=== PATIENT | male | born 1960 | race American Indian/Alaskan Native ===

== ENCOUNTER 2017-01-27 01:36 | Emergency (ER) | payer SELFPAY ==
[2017-01-27 01:41] VITALS: BMI 25.7
[2017-01-27 01:42] VITALS: TEMP 99.3
--- NOTE | 2017-01-27 01:46 | ED PDOC ---
Arrival/HPI - General Time Seen by Provider: 01/27/17 01:37 Historian: Patient - History of Present Illness Narrative History of Present Illness (Text): 01/27/17 01:45 Tomasz Darling is a 56 year old male smoker, whose past medical history includes pneumonia and hypertension, who presents to the Emergency department complaining of shortness of breath since yesterday. Patient denies any fever, chills, nausea, vomiting, diarrhea, urinary symptoms, back pain, neck pain, headache, dizziness, or any other complaints. Time/Duration: Other (yesterday) Symptom Onset: Gradual Symptom Course: Unchanged Activities at Onset: Rest, Light Context: Home Past Medical History - Provider Review Nursing Documentation Reviewed: Yes Family/Social History - Physician Review Nursing Documentation Reviewed: Yes Family/Social History: Unknown Family HX Allergies/Home Meds Allergies/Adverse Reactions: Allergies No Known Allergies Allergy (Verified 01/27/17 01:40) Home Medications: Home Meds Medication Instructions Recorded Confirmed Aspirin [Aspirin Chewable] 81 mg PO DAILY 01/27/17 01/27/17 Benazepril HCl [Lotensin] 40 mg PO DAILY 01/27/17 01/27/17 Famotidine [Pepcid] 20 mg PO DAILY 01/27/17 01/27/17 Hydrochlorothiazide [Microzide] 12.5 mg PO DAILY 01/27/17 01/27/17 Omeprazole [Omeprazole] 40 mg PO DAILY 01/27/17 01/27/17 Tadalafil [Cialis] 5 mg PO DAILY 01/27/17 01/27/17 amLODIPine [Norvasc] 10 mg PO DAILY 01/27/17 01/27/17 Review of Systems - Physician Review All systems were reviewed & negative as marked: Yes - Review of Systems Constitutional: Normal. absent: Fevers Eyes: Normal ENT: Normal Respiratory: SOB Gastrointestinal: Normal. absent: Abdominal Pain, Diarrhea, Nausea, Vomiting Genitourinary Male: Normal. absent: Dysuria, Frequency, Hematuria, Urinary Output Changes Musculoskeletal: Normal. absent: Back Pain, Neck Pain Skin: Normal. absent: Rash Neurological: Normal. absent: Headache, Dizziness Endocrine: Normal Hemo/Lymphatic: Normal Psychiatric: Normal Physical Exam Vital Signs Reviewed: Yes Vital Signs Temp Pulse Resp BP Pulse Ox 01/27/17 05:00 80 16 132/81 97 01/27/17 04:04 87 16 147/83 94 L 01/27/17 02:41 88 20 100 01/27/17 02:17 18 01/27/17 01:42 99.3 F 79 15 149/86 100 Temperature: Afebrile Blood Pressure: Normal Pulse: Regular Respiratory Rate: Normal Appearance: Positive for: Well-Appearing, Non-Toxic, Comfortable Pain Distress: None Mental Status: Positive for: Alert and Oriented X 3 - Systems Exam Head: Present: Atraumatic, Normocephalic Pupils: Present: PERRL Extroacular Muscles: Present: EOMI Conjunctiva: Present: Normal Mouth: Present: Moist Mucous Membranes Neck: Present: Normal Range of Motion Respiratory/Chest: Present: Decreased Breath Sounds. No: Respiratory Distress, Accessory Muscle Use Cardiovascular: Present: Regular Rate and Rhythm, Normal S1, S2. No: Murmurs Abdomen: Present: Normal Bowel Sounds. No: Tenderness, Distention, Peritoneal Signs Back: Present: Normal Inspection Upper Extremity: Present: Normal Inspection. No: Cyanosis, Edema Lower Extremity: Present: Normal Inspection. No: Edema Neurological: Present: GCS=15, CN II-XII Intact, Speech Normal Skin: Present: Warm, Dry, Normal Color. No: Rashes Psychiatric: Present: Alert, Oriented x 3, Normal Insight, Normal Concentration Medical Decision Making ED Course and Treatment: 01/27/17 01:46 Impression: 56 year old male complaining of shortness of breath since yesterday. Differential Diagnosis include but are not limited to: reactive airway disease Plan: -- EKG -- Chest X-ray -- Labs, cardiac enzymes, BNP, blood cultures -- Duoneb -- Reassess and disposition Progress Notes: Reviewed EKG, NSR at [address]-segment elevations or depressions, no T-wave inversions, normal intervals. 01/27/17 02:20 Reviewed radiology, Chest X-ray shows no acute processes. 01/27/17 05:35 On re-evaluation, the patient feels better and is in no acute distress. I have discussed the results and plan with the patient, who expresses understanding. Patient in agreement with plan to discharged home. Patient is stable for discharge. Patient was instructed to follow up with physician/clinic in 1-2 days or return if symptoms worsen or new concerning symptoms arise. - Lab Interpretations Microbiology Results: Microbiology Results 01/27/17 02:45 Blood-Venous Blood Culture - Preliminary NO GROWTH AFTER 24 HOURS 01/27/17 02:15 Blood-Venous Blood Culture - Preliminary NO GROWTH AFTER 24 HOURS Lab Results: 01/27/17 01:44 01/27/17 01:44 Lab Results 01/27/17 01:44: Sodium 141, Potassium 3.7, Chloride 106, Carbon Dioxide 21, Anion Gap 18, BUN 14, Creatinine 0.8, Est GFR ( Amer) > 60, Est GFR (Non- Af Amer) > 60, Random Glucose 103, Calcium 9.5, Total Bilirubin 0.2, AST 23, ALT 28, Alkaline Phosphatase 75, Lactate Dehydrogenase 432, Total Creatine Kinase 149, Troponin I < 0.01, NT-Pro-B Natriuret Pep 165, Total Protein 7.8, Albumin 4.5, Globulin 3.4, Albumin/Globulin Ratio 1.3 01/27/17 01:44: WBC 11.2 H, RBC 4.31, Hgb 13.0 L, Hct 37.9 L, MCV 87.9, MCH 30.2 , MCHC 34.3, RDW 14.4, Plt Count 212, MPV 9.4, Gran % 71.5 H, Lymph % (Auto) 13.9 L, Frontier % (Auto) 12.1 H, Eos % (Auto) 2.4, Baso % (Auto) 0.1, Gran # 8.02 H , Lymph # 1.6, Frontier # 1.4 H, Eos # 0.3, Baso # 0.01 I have reviewed the lab results: Yes - RAD Interpretation Radiology Orders: 01/27/17 01:44 CHEST PORTABLE [RAD] Stat Program Schedule Clerk: ED Physician - EKG Interpretation Interpreted by ED Physician: Yes Type: 12 lead EKG - Medication Orders Current Medication Orders: Discontinued Medications Albuterol/Ipratropium (Duoneb 3 Mg/0.5 Mg (3 Ml) Ud) 3 ml IH Q15M SARAH Stop: 01/27/17 02:31 Last Admin: 01/27/17 02:40 Dose: 3 ml - Scribe Statement The provider has reviewed the documentation as recorded by the Jennibefren Robertson All medical record entries made by the Scribe were at my direction and personally dictated by me. I have reviewed the chart and agree that the record accurately reflects my personal performance of the history, physical exam, medical decision making, and the department course for this patient. I have also personally directed, reviewed, and agree with the discharge instructions and disposition. Disposition/Present on Arrival - Present on Arrival Any Indicators Present on Arrival: No - Disposition Have Diagnosis and Disposition been Completed?: Yes Diagnosis: Reactive airway disease Disposition: HOME/ ROUTINE Disposition Time: 05:35 Condition: GOOD Discharge Instructions (ExitCare): Reactive Airways Disease (ED) Prescriptions: Albuterol HFA [Ventolin HFA] 1 puff IH QID #1 puff
[2017-01-27] MEDS: Albuterol-Ipratrop 3 mg / 0.5 (3 ml) UD IH SCH ×3 (01:59→02:40)
[2017-01-27 02:19] LABS: ALB/GLOB RATIO 1.3 (1.1-1.8); ALBUMIN 4.5 g/dL (3.0-4.8); ALT/SGPT 28 U/L (7-56); AST/SGOT 23 U/L (15-59); BLOOD UREA NITROGEN 14 mg/dL (7-21); CALCIUM 9.5 mg/dL (8.4-10.5); GFR AFRICAN-AMERICAN > 60; GFR NON-AFRICAN AMERICAN > 60
[2017-01-27 02:20] LABS: BASO # 0.01 K/mm3 (0.0-2.0); BASO % 0.1 % (0.0-3.0); EOS # 0.3 (0.0-0.7); EOS % 2.4 % (1.5-5.0); GRAN # 8.02 (1.4-6.5); GRAN % 71.5 % (50.0-68.0); LYMPH # 1.6 (1.2-3.4); LYMPH % 13.9 % (22.0-35.0); MEAN CELL VOLUME 87.9 fL (80.0-105.0); MEAN CORPUSCULAR HEMOGLOBIN 30.2 pg (25.0-35.0); MEAN CORPUSCULAR HGB CONC 34.3 g/dl (31.0-37.0); MEAN PLATELET VOLUME 9.4 fl (7.0-11.0); MONO # 1.4 (0.1-0.6); MONO % 12.1 % (1.0-6.0); PLATELET COUNT 212 10^3/uL (120.0-450.0); RBC 4.31 10^6/uL (3.5-6.1); RED CELL DISTRIBUTION WIDTH 14.4 % (11.5-14.5); WHITE BLOOD COUNT 11.2 10^3/ul (4.5-11.0)
[2017-01-27 02:31] LABS: B-TYPE NATRIURETIC PEPTIDE 165 pg/mL (0-450)
[2017-01-27 02:32] LABS: TROPONIN I < 0.01 ng/mL
[2017-01-27 04:04] VITALS: RESP 16
[2017-01-27 05:25] VITALS: BP 132/81; PULSE 80; O2SAT 97
--- NOTE | 2017-01-27 08:41 | RAD ---
HISTORY: sob COMPARISON: 10/01/2015 FINDINGS: LUNGS: No active pulmonary disease. PLEURA: No significant pleural effusion identified, no pneumothorax apparent. CARDIOVASCULAR: Normal. OSSEOUS STRUCTURES: No significant abnormalities. VISUALIZED UPPER ABDOMEN: Normal. OTHER FINDINGS: None. IMPRESSION: No active disease.
--- NOTE | 2017-01-27 08:46 | CARD ---
APPROVED REPORT EKG Measurement Heart [id number] <Conclusion> Normal sinus rhythm Normal ECG
== END 2017-01-27 05:41 | disposition home or self-care (01) ==
LOC: ED 01:36
DX: J45.909 Unspecified asthma, uncomplicated (principal)

== ENCOUNTER 2018-09-18 18:55 | Observation (INO) | payer OTHER ==
[2018-09-18 19:27] VITALS: BMI 27.1
[2018-09-18] MEDS ORDERED: Albuterol-Ipratrop 3 mg / 0.5 (3 ml) UD IH STA (19:46)
--- NOTE | 2018-09-18 20:01 | ED PDOC ---
Arrival/HPI - General Chief Complaint: Chest Pain Time Seen by Provider: 09/18/18 19:36 Historian: Patient - History of Present Illness Narrative History of Present Illness (Text): 09/18/18 19:35 58 year old male, whose past medical history includes hypertension, who presents to the Emergency department complaining of chest discomfort, described as 7/10 chest pressure x1 day. Patient notes associated chills, possible low grade fever, and slight shortness of breath. Patient notes occasional non-productive cough. Patient denies any nausea, vomiting, diarrhea, or any other complaints. Patient is a smoker. PMD: Osvaldo Hidalgo Time/Duration: Other (Patient notes symptoms for x1 day) Symptom Onset: Sudden Symptom Course: Unchanged Activities at Onset: Light Past Medical History - Provider Review Nursing Documentation Reviewed: Yes - Cardiac Hx Cardiac Disorders: Yes Hx Hypertension: Yes - Psychiatric Hx Substance Use: No Family/Social History - Physician Review Nursing Documentation Reviewed: Yes Family/Social History: No Known Family HX Smoking Status: Never Smoked Hx Alcohol Use: Yes Hx Substance Use: No Allergies/Home Meds Allergies/Adverse Reactions: Allergies No Known Allergies Allergy (Verified 01/27/17 01:40) Home Medications: Home Meds Medication Instructions Recorded Confirmed Aspirin [Aspirin Chewable] 81 mg PO DAILY 01/27/17 01/27/17 Benazepril HCl [Lotensin] 40 mg PO DAILY 01/27/17 01/27/17 Famotidine [Pepcid] 20 mg PO DAILY 01/27/17 01/27/17 Hydrochlorothiazide [Microzide] 12.5 mg PO DAILY 01/27/17 01/27/17 Omeprazole 40 mg PO DAILY 01/27/17 01/27/17 Tadalafil [Cialis] 5 mg PO DAILY 01/27/17 01/27/17 amLODIPine [Norvasc] 10 mg PO DAILY 01/27/17 01/27/17 Review of Systems - Physician Review All systems were reviewed & negative as marked: Yes - Review of Systems Constitutional: Fevers (Patient notes possible low grade fever). absent: Normal Respiratory: SOB (Patient notes slight shortness of breath ), Cough (Patient notes occasional non-productive cough). absent: Normal Cardiovascular: Chest Pain (Patient notes chest discomfort, described as 7/10 pressure for x1 day ). absent: Normal Gastrointestinal: Normal. absent: Diarrhea, Nausea, Vomiting Physical Exam Vital Signs Reviewed: Yes Vital Signs Temp Pulse Resp BP Pulse Ox 09/18/18 18:55 99.4 F 69 19 173/103 H 96 Temperature: Afebrile Blood Pressure: Hypertensive Pulse: Regular Respiratory Rate: Normal Appearance: Positive for: Well-Appearing, Non-Toxic Pain Distress: Mild Mental Status: Positive for: Alert and Oriented X 3 - Systems Exam Head: Present: Atraumatic, Normocephalic Pupils: Present: PERRL Extroacular Muscles: Present: EOMI Conjunctiva: Present: Normal Mouth: Present: Moist Mucous Membranes Neck: No: Meningeal Signs Respiratory/Chest: Present: Wheezes (Wheezes bilaterally), Rhonchi (Rhonci bilaterally) Cardiovascular: Present: Regular Rate and Rhythm, Normal S1, S2. No: Murmurs Abdomen: No: Tenderness, Distention, Peritoneal Signs Back: Present: Normal Inspection Upper Extremity: Present: Normal Inspection. No: Cyanosis, Edema Lower Extremity: Present: Normal Inspection. No: Edema Neurological: Present: GCS=15, CN II-XII Intact, Speech Normal Skin: Present: Warm, Dry, Normal Color. No: Rashes Psychiatric: Present: Alert, Oriented x 3, Normal Insight, Normal Concentration Medical Decision Making ED Course and Treatment: 09/18/18 19:35 Impression: 58 year old male who presents to the emergency department for chest discomfort, described as 7/10 chest pressure x1 day. Plan: -- EKG -- Labs -- X-Ray of chest -- Duoneb -- Blood culture -- Urine culture -- Reassess and disposition Progress Notes: 09/18/18 20:13 Chest X-ray shows no acute process. 09/19/18 00:[address] Tavares, who accepts patient to be admitted under hospitalist service. - RAD Interpretation Radiology Orders: 09/18/18 19:40 CHEST PORTABLE [RAD] Stat - EKG Interpretation EKG Interpretation (Text): 09/18/18 EKG: Ordered, reviewed, and independently interpreted the EKG. Rate : 71 BPM Rhythm : NSR Interpretation : No acute changes Interpreted by ED Physician: Yes Type: 12 lead EKG - Medication Orders Current Medication Orders: Discontinued Medications Albuterol/Ipratropium (Duoneb 3 Mg/0.5 Mg (3 Ml) Ud) 3 ml IH ONCE STA Stop: 09/18/18 19:47 - Scribe Statement The provider has reviewed the documentation as recorded by the Scribe Marzena Isaacs All medical record entries made by the Scribe were at my direction and personall y dictated by me. I have reviewed the chart and agree that the record accurately reflects my personal performance of the history, physical exam, medical decision making, and the department course for this patient. I have also personally directed, reviewed, and agree with the discharge instructions and disposition. Disposition/Present on Arrival - Present on Arrival Any Indicators Present on Arrival: No History of DVT/PE: No History of Uncontrolled Diabetes: No Urinary Catheter: No History of Decub. Ulcer: No History Surgical Site Infection Following: None - Disposition Have Diagnosis and Disposition been Completed?: Yes Diagnosis: Chest pain Disposition: HOSPITALIZED Disposition Time: 00:23 Patient Plan: Observation Condition: STABLE Discharge Instructions (ExitCare): Chest Pain (ED) Referrals: Osvaldo Dailey MD [Primary Care Provider] - Follow up with primary Forms: Folloyu (Maori)
[2018-09-18 20:26] LABS: ALB/GLOB RATIO 1.4 (1.1-1.8); ALBUMIN 4.7 g/dL (3.0-4.8); ALT/SGPT 33 U/L (7-56); AST/SGOT 27 U/L (17-59); BLOOD UREA NITROGEN 13 mg/dL (7-21); CALCIUM 9.3 mg/dL (8.4-10.5); GFR NON-AFRICAN AMERICAN > 60
[2018-09-18 20:32] LABS: HEMOGLOBIN 13.8 g/dL (14.0-18.0); MEAN CELL VOLUME 87.6 fl (80.0-105.0); MEAN CORPUSCULAR HEMOGLOBIN 29.4 pg (25.0-35.0); MEAN CORPUSCULAR HGB CONC 33.6 g/dl (31.0-37.0); MEAN PLATELET VOLUME 9.4 fl (7.0-11.0); RBC 4.69 10^6/uL (3.5-6.1); WHITE BLOOD COUNT 5.8 10^3/uL (4.5-11.0)
[2018-09-18 20:37] LABS: INR 1.08; PARTIAL THROMBOPLASTIN TIME 31.8 Seconds (26.9-38.3); TROPONIN I < 0.01 ng/mL
--- NOTE | 2018-09-19 00:16 | CP.PCM.HP ---
<Lui Monique - Last Filed: 09/19/18 04:37> History of Present Illness - History of Present Illness History of Present Illness: PGY1 Medicine History and Physical Exam Note for Dr. Tavares CC: chest pain 58 year old male with PMH of hypertension who presents to [facility] ED complaining of chest discomfort x1 day. Patient localizes the pain to his left sternum and non- radiating. Patient describes the pain as pressure sensation and constant, lasting for hours. Patient took tylenol to try and relieve the pain, but this did not help. Patient rates the pain as 7/10 in severity. Of note, Patient reports that he has been sick with congestion for about 2 months, and states that it has been worsening for the past day. Patient admits to associated headache, chills, and congestion. ROS is remarkable for occasional productive cough with yellow sputum, and shortness of breath. Patient otherwise denies abdominal pain, nausea, vomiting, diaphoresis, dizziness, fatigue, n umbness/tingling in lower extremity, muscle aches, and/or diarrhea. PMH: HTN PSH: Patient denies Family Hx: uncle of [place] at 45yo, father of [place] > 60yo. Social Hx: admits to ETOH, admits to tobacco use Medications: as per [facility] Allergies: KNDA PMD: Osvaldo Hidalgo Present on Admission - Present on Admission Any Indicators Present on Admission: No History of DVT/PE: No History of Uncontrolled Diabetes: No Urinary Catheter: No Decubitus Ulcer Present: No Review of Systems - Review of Systems All systems: reviewed and no additional remarkable complaints except (as mentioned in HPI) Past Patient History - Past Social History Smoking Status: Never Smoked - CARDIAC Hx Cardiac Disorders: Yes Hx Hypertension: Yes - PSYCHIATRIC Hx Substance Use: No Meds Allergies/Adverse Reactions: Allergies Allergy/AdvReac Type Severity Reaction Status Date / Time No Known Allergies Allergy Verified 01/27/17 01:40 Physical Exam - Constitutional Appears: Non-toxic, No Acute Distress - Head Exam Head Exam: ATRAUMATIC, NORMAL INSPECTION, NORMOCEPHALIC - Eye Exam Eye Exam: EOMI, Normal appearance, PERRL Pupil Exam: NORMAL ACCOMODATION - ENT Exam ENT Exam: Mucous Membranes Moist, Normal Exam - Neck Exam Neck exam: Positive for: Normal Inspection - Respiratory Exam Respiratory Exam: Wheezes (diffuse wheezing ), NORMAL BREATHING PATTERN. absent: Chest Wall Tenderness, Decreased Breath Sounds, Clear to Auscultation Bilateral, Prolonged Expiratory Phase, Rales, Rhonchi, Respiratory Distress, Stridor - Cardiovascular Exam Cardiovascular Exam: REGULAR RHYTHM, +S1, +S2 - GI/Abdominal Exam GI & Abdominal Exam: Normal Bowel Sounds, Soft. absent: Tenderness - Extremities Exam Extremities exam: Positive for: full ROM, normal capillary refill, normal inspection, pedal pulses present - Back Exam Back exam: FULL ROM, NORMAL INSPECTION. absent: CVA tenderness (L), CVA tenderness (R) - Neurological Exam Neurological exam: Alert, CN II-XII Intact, Oriented x3 - Psychiatric Exam Psychiatric exam: Normal Affect, Normal Mood - Skin Skin Exam: Dry, Intact, Normal Color Results - Vital Signs Recent Vital Signs: Last Vital Signs Temp 99.6 F 09/18/18 22:30 Pulse 73 09/18/18 22:30 Resp 16 09/18/18 22:30 BP 174/107 H 09/18/18 20:15 Pulse Ox 96 09/18/18 22:30 - Labs Result Diagrams: 09/19/18 03:30 09/18/18 20:00 Labs: Laboratory Results - last 24 hr 09/18/18 09/18/18 09/18/18 20:00 20:00 20:00 WBC 5.8 RBC 4.69 Hgb 13.8 L Hct 41.1 L MCV 87.6 MCH 29.4 MCHC 33.6 RDW 15.0 H Plt Count 213 MPV 9.4 PT 12.0 INR 1.08 APTT 31.8 Sodium 138 Potassium 3.5 L Chloride 104 Carbon Dioxide 26 Anion Gap 11 BUN 13 Creatinine 0.9 Est GFR ( Amer) > 60 Est GFR (Non-Af Amer) > 60 Random Glucose 91 Calcium 9.3 Total Bilirubin 0.3 AST 27 ALT 33 Alkaline Phosphatase 84 Lactate Dehydrogenase 451 Total Creatine Kinase 145 Troponin I < 0.01 Total Protein 8.0 Albumin 4.7 Globulin 3.3 Albumin/Globulin Ratio 1.4 Assessment & Plan - Assessment and Plan (Free Text) Assessment: 58 year old male with PMH of hypertension who presents to [facility] ED complaining of chest discomfort x1 day. Chest pain, ACS Rule-Out - EK bpm, NSR - Troponin negative x1 - CXR: no acute disease - Cardiology consulted; - Follow-up EKG Q6H - Follow-up Troponin Q6H - Follow-up Urine culture - Follow-up Blood culture - Duonebs PRN - ASA loading dose given in ED - Continue ASA 81mg Daily - Tylenol PRN - Cardiology (Dr. Peraza) consulted; recommendations appreciated - Monitor in Telemetry Shortness of breath in setting of recent URI - CXR: no acute disease (follow-up official report) - Duoneb PRN - Patient afebrile, no leukocytosis - Monitor CBC Mild Hypokalemia, 3.5 - Repleted - Continue to replete daily K-Dur (Patient is on HCTZ) - F/U CMP - F/U Mg - Monitor CMP History of HTN - Continue HCTZ - Continue Norvasc PPx: - DVT: SCD - GI: Pepcid - HHD Plan discussed with Dr. Tavares <Teressa Tavares - Last Filed: 09/19/18 10:24> Results - Vital Signs Recent Vital Signs: Last Vital Signs Temp 98.2 F 09/19/18 08:36 Pulse 67 09/19/18 08:36 Resp 20 09/19/18 08:36 BP 162/98 H 09/19/18 09:41 Pulse Ox 94 L 09/19/18 08:36 - Labs Result Diagrams: 09/19/18 03:30 09/19/18 03:30 Labs: Laboratory Results - last 24 hr 09/18/18 09/18/18 09/18/18 20:00 20:00 20:00 WBC 5.8 RBC 4.69 Hgb 13.8 L Hct 41.1 L MCV 87.6 MCH 29.4 MCHC 33.6 RDW 15.0 H Plt Count 213 MPV 9.4 Neut % (Auto) Lymph % (Auto) Weak[place] % (Auto) Eos % (Auto) Baso % (Auto) Lymph # (Auto) [place] # (Auto) Eos # (Auto) Baso # (Auto) Absolute Neuts (auto) PT 12.0 INR 1.08 APTT 31.8 Sodium 138 Potassium 3.5 L Chloride 104 Carbon Dioxide 26 Anion Gap 11 BUN 13 Creatinine 0.9 Est GFR ( Amer) > 60 Est GFR (Non-Af Amer) > 60 Random Glucose 91 Calcium 9.3 Phosphorus Magnesium Total Bilirubin 0.3 AST 27 ALT 33 Alkaline Phosphatase 84 Lactate Dehydrogenase 451 Total Creatine Kinase 145 Troponin I < 0.01 Total Protein 8.0 Albumin 4.7 Globulin 3.3 Albumin/Globulin Ratio 1.4 09/19/18 09/19/18 09/19/18 03:30 03:30 08:00 WBC 4.9 RBC 4.52 Hgb 13.1 L Hct 39.3 L MCV 86.9 MCH 29.0 MCHC 33.3 RDW 15.1 H Plt Count 208 MPV 9.4 Neut % (Auto) 58.3 Lymph % (Auto) 18.1 L [place] % (Auto) 17.5 H Eos % (Auto) 5.9 H Baso % (Auto) 0.2 Lymph # (Auto) 0.9 L [place] # (Auto) 0.9 H Eos # (Auto) 0.3 Baso # (Auto) 0.01 Absolute Neuts (auto) 2.86 PT INR APTT Sodium 137 Potassium 3.7 Chloride 104 Carbon Dioxide 26 Anion Gap 11 BUN 13 Creatinine 0.8 Est GFR ( Amer) > 60 Est GFR (Non-Af Amer) > 60 Random Glucose 114 H Calcium 9.4 Phosphorus 3.5 Magnesium 2.1 Total Bilirubin 0.3 AST 24 ALT 26 Alkaline Phosphatase 80 Lactate Dehydrogenase Total Creatine Kinase Troponin I < 0.01 < 0.01 Total Protein 7.7 Albumin 4.5 Globulin 3.2 Albumin/Globulin Ratio 1.4 Attending/Attestation - Attestation I have personally seen and examined this patient.: No I have fully participated in the care of the patient.: Yes I have reviewed all pertinent clinical information: Yes
[2018-09-19] MEDS ORDERED: Albuterol-Ipratrop 3 mg / 0.5 (3 ml) UD IH PRN (01:56)
[2018-09-19] MEDS ORDERED: Potassium Chloride 20 mEq/15 ml LIQ UD PO STA (01:57)
[2018-09-19 03:52] LABS: BASO # 0.01 K/mm3 (0.0-2.0); BASO % 0.2 % (0.0-3.0); EOS # 0.3 (0.0-0.7); EOS % 5.9 % (1.5-5.0); HEMOGLOBIN 13.1 g/dL (14.0-18.0); LYMPH # 0.9 (1.2-3.4); LYMPH % 18.1 % (22.0-35.0); MEAN CELL VOLUME 86.9 fl (80.0-105.0); MEAN CORPUSCULAR HGB CONC 33.3 g/dl (31.0-37.0); MEAN PLATELET VOLUME 9.4 fl (7.0-11.0); MONO # 0.9 (0.1-0.6); MONO % 17.5 % (1.0-6.0); RBC 4.52 10^6/uL (3.5-6.1); RED CELL DISTRIBUTION WIDTH 15.1 % (11.5-14.5); WHITE BLOOD COUNT 4.9 10^3/uL (4.5-11.0)
[2018-09-19 04:10] LABS: TROPONIN I < 0.01 ng/mL
--- NOTE | 2018-09-19 05:05 | CP.PCM.HP ---
Past Patient History - Past Social History Smoking Status: Never Smoked - CARDIAC Hx Cardiac Disorders: Yes Hx Hypertension: Yes - PULMONARY Hx Respiratory Disorders: Yes Hx Pneumonia: Yes - NEUROLOGICAL Hx Neurological Disorder: No - HEENT Hx HEENT Problems: No - RENAL Hx Chronic Kidney Disease: No - ENDOCRINE/METABOLIC Hx Endocrine Disorders: No - HEMATOLOGICAL/ONCOLOGICAL Hx Blood Disorders: No - INTEGUMENTARY Hx Dermatological Problems: No - MUSCULOSKELETAL/RHEUMATOLOGICAL Hx Falls: No - GASTROINTESTINAL Hx Gastrointestinal Disorders: Yes Hx Gastroesophageal Reflux: Yes - GENITOURINARY/GYNECOLOGICAL Hx Genitourinary Disorders: No - PSYCHIATRIC Hx Substance Use: No - SURGICAL HISTORY Hx Surgeries: Yes Hx Appendectomy: Yes Other/Comment: "kidney surgery" Meds Allergies/Adverse Reactions: Allergies Allergy/AdvReac Type Severity Reaction Status Date / Time No Known Allergies Allergy Verified 01/27/17 01:40 Results - Vital Signs Recent Vital Signs: Last Vital Signs Temp 99.3 F 09/19/18 02:13 Pulse 82 09/19/18 02:13 Resp 18 09/19/18 02:41 BP 158/100 H 09/19/18 02:13 Pulse Ox 98 09/19/18 02:13 - Labs Result Diagrams: 09/19/18 03:30 09/18/18 20:00 Labs: Laboratory Results - last 24 hr 09/18/18 09/18/18 09/18/18 20:00 20:00 20:00 WBC 5.8 RBC 4.69 Hgb 13.8 L Hct 41.1 L MCV 87.6 MCH 29.4 MCHC 33.6 RDW 15.0 H Plt Count 213 MPV 9.4 Neut % (Auto) Lymph % (Auto) Nance % (Auto) Eos % (Auto) Baso % (Auto) Lymph # (Auto) Nance # (Auto) Eos # (Auto) Baso # (Auto) Absolute Neuts (auto) PT 12.0 INR 1.08 APTT 31.8 Sodium 138 Potassium 3.5 L Chloride 104 Carbon Dioxide 26 Anion Gap 11 BUN 13 Creatinine 0.9 Est GFR ( Amer) > 60 Est GFR (Non-Af Amer) > 60 Random Glucose 91 Calcium 9.3 Total Bilirubin 0.3 AST 27 ALT 33 Alkaline Phosphatase 84 Lactate Dehydrogenase 451 Total Creatine Kinase 145 Troponin I < 0.01 Total Protein 8.0 Albumin 4.7 Globulin 3.3 Albumin/Globulin Ratio 1.4 09/19/18 09/19/18 03:30 03:30 WBC 4.9 RBC 4.52 Hgb 13.1 L Hct 39.3 L MCV 86.9 MCH 29.0 MCHC 33.3 RDW 15.1 H Plt Count 208 MPV 9.4 Neut % (Auto) 58.3 Lymph % (Auto) 18.1 L Nance % (Auto) 17.5 H Eos % (Auto) 5.9 H Baso % (Auto) 0.2 Lymph # (Auto) 0.9 L Nance # (Auto) 0.9 H Eos # (Auto) 0.3 Baso # (Auto) 0.01 Absolute Neuts (auto) 2.86 PT INR APTT Sodium Potassium Chloride Carbon Dioxide Anion Gap BUN Creatinine Est GFR ( Amer) Est GFR (Non-Af Amer) Random Glucose Calcium Total Bilirubin AST ALT Alkaline Phosphatase Lactate Dehydrogenase Total Creatine Kinase Troponin I < 0.01 Total Protein Albumin Globulin Albumin/Globulin Ratio
[2018-09-19 05:16] LABS: ALB/GLOB RATIO 1.4 (1.1-1.8); ALBUMIN 4.5 g/dL (3.0-4.8); ALT/SGPT 26 U/L (7-56); AST/SGOT 24 U/L (17-59); BLOOD UREA NITROGEN 13 mg/dL (7-21); CALCIUM 9.4 mg/dL (8.4-10.5); GFR NON-AFRICAN AMERICAN > 60
--- NOTE | 2018-09-19 09:38 | RAD ---
Date of service: 09/18/2018 HISTORY: cough COMPARISON: 01/27/2017 FINDINGS: LUNGS: No active pulmonary disease. PLEURA: No significant pleural effusion identified, no pneumothorax apparent. CARDIOVASCULAR: No aortic atherosclerotic calcification present. Normal cardiac size. No pulmonary vascular congestion. OSSEOUS STRUCTURES: No significant abnormalities. VISUALIZED UPPER ABDOMEN: Normal. OTHER FINDINGS: None. IMPRESSION: No active disease.
[2018-09-19] MEDS: Potassium Chloride 20 mEq ER Tab PO SCH (09:40)
--- NOTE | 2018-09-19 11:02 | CARD ---
APPROVED REPORT Date of service: 09/18/2018 EKG Measurement Heart [id number] <Conclusion> Normal sinus rhythm Normal ECG
--- NOTE | 2018-09-19 12:26 | CON ---
DATE OF CONSULTATION: 09/19/2018 REASON FOR CONSULTATION: Chest tightness and wheezing. HISTORY OF PRESENT ILLNESS: The patient is 58 years old male, who is a smoker, has a history of hypertension, presented because of chest discomfort. The patient stated that he was short of breath and wheezing, and his chest discomfort improved after he was given the breathing treatment. The patient is unaware of any history of heart attack in the past. SOCIAL HISTORY: The patient is a smoker, occasional drinker. MEDICATIONS: Aspirin 81 mg once a day, albuterol inhaler, K-Dur 20 mEq daily, hydrochlorothiazide 12.5 mg once a day, Norvasc 10 mg once a day, and Pepcid 20 mg twice a day. REVIEW OF SYSTEMS: No fever or chills. Mild dry cough. No dizziness or syncope. PHYSICAL EXAMINATION: GENERAL: The patient is a middle-aged male, who does not appear to be in any distress. VITAL SIGNS: Blood pressure 162/98, heart rate 67, temperature 98.2, respirations 20. HEENT: Normocephalic. CHEST: Clear. HEART: S1 and S2 are regular. ABDOMEN: Soft. EXTREMITIES: No edema. LABORATORY DATA: Hemoglobin and hematocrit 13.1 and 39.3, white count and platelet count are within normal limits. The SMA-7 is within normal limits except for a glucose of 114, potassium was 3.5 yesterday. Three sets of troponins are negative. PT/PTT and INR are within normal limits. Influenza serology is negative. EKG revealed normal sinus rhythm at a rate of 69. Chest x-ray, no acute findings except for prominent bronchovascular markings. ASSESSMENT: 1. Chest pain, myocardial infarction is ruled out. 2. Consider underlying chronic obstructive lung disease. 3. Uncontrolled hypertension. 4. Improved hypokalemia. RECOMMENDATIONS: Continue current aspirin, albuterol, amlodipine, hydrochlorothiazide, and K-Dur. Obtain an echocardiogram study and obtain urine for drug screen. Fabrizio Peraza MD
[2018-09-19 16:09] LABS: BARBITURATES, UR NEGATIVE (NEGATIVE); BENZODIAZEPINES, UR NEGATIVE (NEGATIVE); OPIATES, UR NEGATIVE (NEGATIVE); PHENCYCLIDINE, UR NEGATIVE (NEGATIVE)
[2018-09-20 08:38] LABS: INR 1.02; PROTHROMBIN TIME 11.5 SECONDS (9.4-12.5)
[2018-09-20 08:42] LABS: ALB/GLOB RATIO 1.4 (1.1-1.8); ALBUMIN 4.4 g/dL (3.0-4.8); ALT/SGPT 26 U/L (7-56); AST/SGOT 26 U/L (17-59); BLOOD UREA NITROGEN 17 mg/dL (7-21); CALCIUM 9.4 mg/dL (8.4-10.5); GFR NON-AFRICAN AMERICAN > 60
[2018-09-20 08:43] LABS: BASO # 0.01 K/mm3 (0.0-2.0); BASO % 0.2 % (0.0-3.0); EOS # 0.5 (0.0-0.7); EOS % 8.9 % (1.5-5.0); HEMOGLOBIN 14.3 g/dL (14.0-18.0); LYMPH # 1.6 (1.2-3.4); LYMPH % 31.3 % (22.0-35.0); MEAN CELL VOLUME 87.4 fl (80.0-105.0); MEAN CORPUSCULAR HEMOGLOBIN 28.9 pg (25.0-35.0); MEAN CORPUSCULAR HGB CONC 33.1 g/dl (31.0-37.0); MEAN PLATELET VOLUME 9.5 fl (7.0-11.0); MONO % 18.5 % (1.0-6.0); RBC 4.94 10^6/uL (3.5-6.1); RED CELL DISTRIBUTION WIDTH 15.1 % (11.5-14.5); WHITE BLOOD COUNT 5.1 10^3/uL (4.5-11.0)
[2018-09-20] MEDS ORDERED: guaiFENesin-DM 600-30 mg ER Tab PO PRN (09:32)
[2018-09-20] MEDS: guaiFENesin 600 mg ER Tab PO SCH ×2 (10:00→19:08)
[2018-09-20] MEDS: Potassium Chloride 20 mEq ER Tab PO SCH (10:20)
[2018-09-20] MEDS: Albuterol-Ipratrop 3 mg / 0.5 (3 ml) UD IH SCH ×3 (10:43→19:20)
--- NOTE | 2018-09-20 15:47 | CP.PCM.PN ---
<TorresAliceyadira L - Last Filed: 09/20/18 15:54> Subjective - Date & Time of Evaluation Date of Evaluation: 09/20/18 Time of Evaluation: 07:00 - Subjective Subjective: Resident Progress Note for Hospitalist Service Patient was examined at bedside. No acute events overnight. Patient reports cough and congestion, occasional chills and shortness of breath. Denies chest pain, nausea, vomiting, abdominal pain, diarrhea, dysuria. Objective - Vital Signs/Intake and Output Vital Signs (last 24 hours): Temp Pulse Resp BP Pulse Ox 98.4 F 68 20 157/96 H 96 09/20/18 06:00 09/20/18 10:00 09/20/18 06:00 09/20/18 09:37 09/20/18 06:00 Intake and Output: 09/20/18 09/20/18 06:59 18:59 Intake Total 1979 Balance 1979 - Medications Medications: Current Medications Acetaminophen (Tylenol 325mg Tab) 650 mg PO Q6H PRN PRN Reason: Pain, moderate (4-7) Last Admin: 09/20/18 14:56 Dose: 650 mg Albuterol/Ipratropium (Duoneb 3 Mg/0.5 Mg (3 Ml) Ud) 3 ml IH Q2H PRN PRN Reason: Shortness of Breath Last Admin: 09/19/18 18:20 Dose: 3 ml Albuterol/Ipratropium (Duoneb 3 Mg/0.5 Mg (3 Ml) Ud) 3 ml IH [id number] [facility] Last Admin: 09/20/18 10:43 Dose: 3 ml Amlodipine Besylate (Norvasc) 10 mg PO DAILY [facility] Last Admin: 09/20/18 09:37 Dose: 10 mg Aspirin (Aspirin Chewable) 81 mg PO DAILY [facility] Last Admin: 09/20/18 09:35 Dose: 81 mg Famotidine (Pepcid) 20 mg PO 1000,2200 [facility] Last Admin: 09/20/18 09:37 Dose: 20 mg Guaifenesin (Mucinex La) 600 mg PO BID [facility] Last Admin: 09/20/18 10:00 Dose: 600 mg Hydrochlorothiazide (Microzide) 12.5 mg PO DAILY [facility] Last Admin: 09/20/18 09:36 Dose: 12.5 mg Lisinopril (Zestril) 20 mg PO DAILY [facility] Last Admin: 09/20/18 09:38 Dose: 20 mg Potassium Chloride (K-Dur 20 Meq Er Tab) 10 meq PO 0800 [facility] Last Admin: 09/20/18 10:20 Dose: 10 meq - Labs Labs: 09/20/18 08:19 09/20/18 08:19 PT 11.5 SECONDS (9.4-12.5) 09/20/18 08:19 INR 1.02 09/20/18 08:19 APTT 32.0 Seconds (26.9-38.3) 09/20/18 08:19 - Additional Findings Additional findings: - Constitutional Appears: Non-toxic, No Acute Distress - Head Exam Head Exam: ATRAUMATIC, NORMOCEPHALIC - Eye Exam Eye Exam: EOMI, Normal appearance - ENT Exam ENT Exam: Mucous Membranes Moist, Normal Exam - Respiratory Exam Respiratory Exam: Wheezes (mild), NORMAL BREATHING PATTERN. absent: Chest Wall Tenderness, Decreased Breath Sounds, Clear to Auscultation Bilateral, Prolonged Expiratory Phase, Rales, Rhonchi, Respiratory Distress - Cardiovascular Exam Cardiovascular Exam: REGULAR RHYTHM, +S1, +S2 - GI/Abdominal Exam GI & Abdominal Exam: Normal Bowel Sounds, Soft. absent: Tenderness - Extremities Exam Extremities exam: Positive for: full ROM, normal capillary refill, normal inspection, pedal pulses present - Neurological Exam Neurological exam: Alert, CN II-XII Intact, Oriented x3 - Psychiatric Exam Psychiatric exam: Normal Affect, Normal Mood - Skin Skin Exam: Dry, Intact, Normal Color Assessment and Plan - Assessment and Plan (Free Text) Assessment: Patient is a 58 year old male with past medical history of hypertension who presented with chest pain and upper respiratory tract infection. Plan: Chest pain - EKG shows NSR - Troponins negative x3 - Cardiology consulted. Appreciate recs. - followup ECHO - Continue ASA 81mg Daily Upper respiratory tract infection - Afebrile, no leukocytosis - CXR: no acute disease - Flu negative - BCx neg x2 - Duoneb Q4H and PRN - Mucinex Hypokalemia - monitor and replete History of HTN - Continue home HCTZ - Continue home Norvasc Tobacco abuse - cessation counseling PPX: - SCDs, Pepcid Case discussed with Dr. Jose Armando Torres PGY-1 <Quin Suárez R - Last Filed: 09/21/18 15:01> Objective - Vital Signs/Intake and Output Vital Signs (last 24 hours): Temp Pulse Resp BP Pulse Ox 98.3 F 78 18 145/72 98 09/21/18 07:23 09/21/18 10:00 09/21/18 07:23 09/21/18 09:06 09/21/18 07:23 - Labs Labs: 09/21/18 07:00 09/21/18 07:00 PT 11.5 SECONDS (9.4-12.5) 09/20/18 08:19 INR 1.02 09/20/18 08:19 APTT 32.0 Seconds (26.9-38.3) 09/20/18 08:19 Attending/Attestation - Attestation I have personally seen and examined this patient.: Yes I have fully participated in the care of the patient.: Yes I have reviewed all pertinent clinical information, including history, physical exam and plan: Yes Notes (Text): Patient seen and examined by me with resident at approximately 9:40 AM on 09/20/18. Case including HPI, physical exam, and assessment and plan discussed with resident. Agree with above with following additions/corrections. Patient is a 58-year-old male with past medical history significant for hypertension and marijuana use that presented to the emergency room with chest pain. Patient states he is feeling better. Chest pain resolved. Patient complains of nasal congestion and "cold-like" symptoms. Shortness of breath improved. No abdominal pain. No nausea or vomiting. Patient is tolerating diet. No headaches or dizziness. No fevers or chills. No dysuria. No diarrhea or constipation. Physical exam: General: Awake and alert sitting up in bed in no acute distress HEENT: Normocephalic, atraumatic. Extraocular muscles intact, pupils equal and reactive, no scleral icterus. Oropharynx is pink and moist. No pharyngeal erythema or exudate appreciated. Neck is supple. Cardiovascular: Regular rhythm. Normal S1 and S2. No murmurs, rubs, or gallops appreciated Pulmonary: Normal respiratory effort. No rhonchi, rales, or wheezing appreciated. Gastrointestinal: Soft, nondistended. Nontender. Positive bowel sounds all 4 quadrants. No guarding. Musculoskeletal: Moves all extremities. No calf tenderness. No edema appreciated. Central nervous system: AAOx3. Dermatologic: Skin warm and dry. Assessment and plan: Patient is a 58-year-old male with past medical history significant for hypertension and marijuana use that presented to the emergency room with chest pain. 1. Chest pain. Resolved. Cardiology following, recommendations appreciated. Troponins within normal limits. 2D echo results pending. Chest xray per radiologist shows no active disease. ACS ruled out per cardiology. 2. Shortness of breath. Cough. URI, likely viral. Likely has underlying COPD. Long smoking history. Patient counseled at length on smoking cessation. Continue nebulizer treatments. Chest x-ray per radiologist shows no active disease. Started on Mucinex. Patient advised to all with the highway technician for outpatient pulmonary function testing. Patient afebrile. No leukocytosis. Influenza negative. 3. Hypertension. Continue Norvasc. Continue hydrochlorothiazide. Lisinopril increased to 20 mg daily. Patient takes benazepril at home. 4. Hypokalemia. Potassium replacement. Follow-up repeat labs. 5. Tobacco abuse. Patient counseled at length on cessation. 6. Marijuana use. Patient counseled length on cessation. Case was discussed in detail with the patient regarding current diagnosis and treatment plan. All questions answered.
--- NOTE | 2018-09-20 17:46 | RAD ---
HISTORY: shortness of breath COMPARISON: Chest x-ray performed 09/18/18 TECHNIQUE: Chest PA and lateral FINDINGS: LUNGS: No focal consolidation. Please note that chest x-ray has limited sensitivity for the detection of pulmonary masses. PLEURA: No significant pleural effusion identified. No definite pneumothorax . CARDIOVASCULAR: Heart size appears within normal limits. No atherosclerotic calcification present. OSSEOUS STRUCTURES: Degenerative changes. VISUALIZED UPPER ABDOMEN: Mild elevation of the right hemidiaphragm. OTHER FINDINGS: None. IMPRESSION: No focal consolidations. Findings as above.
[2018-09-20 21:52] VITALS: RESP 18
[2018-09-21] MEDS: Albuterol-Ipratrop 3 mg / 0.5 (3 ml) UD IH SCH ×4 (04:50→11:23)
[2018-09-21 07:24] VITALS: TEMP 98.3; O2SAT 98
[2018-09-21 07:39] LABS: ALB/GLOB RATIO 1.3 (1.1-1.8); ALBUMIN 4.3 g/dL (3.0-4.8); ALT/SGPT 21 U/L (7-56); AST/SGOT 22 U/L (17-59); BLOOD UREA NITROGEN 20 mg/dL (7-21); CALCIUM 9.4 mg/dL (8.4-10.5); GFR NON-AFRICAN AMERICAN > 60
--- NOTE | 2018-09-21 07:48 | CP.PCM.PN ---
Objective - Vital Signs/Intake and Output Vital Signs (last 24 hours): Temp Pulse Resp BP Pulse Ox 98.3 F 85 18 149/91 H 98 09/21/18 07:23 09/21/18 07:23 09/21/18 07:23 09/21/18 07:23 09/21/18 07:23 - Medications Medications: Current Medications Acetaminophen (Tylenol 325mg Tab) 650 mg PO Q6H PRN PRN Reason: Pain, moderate (4-7) Last Admin: 09/20/18 14:56 Dose: 650 mg Albuterol/Ipratropium (Duoneb 3 Mg/0.5 Mg (3 Ml) Ud) 3 ml IH Q2H PRN PRN Reason: Shortness of Breath Last Admin: 09/19/18 18:20 Dose: 3 ml Albuterol/Ipratropium (Duoneb 3 Mg/0.5 Mg (3 Ml) Ud) 3 ml IH [id number] [facility] Last Admin: 09/21/18 04:50 Dose: 3 ml Amlodipine Besylate (Norvasc) 10 mg PO DAILY [facility] Last Admin: 09/20/18 09:37 Dose: 10 mg Aspirin (Aspirin Chewable) 81 mg PO DAILY [facility] Last Admin: 09/20/18 09:35 Dose: 81 mg Famotidine (Pepcid) 20 mg PO 1000,2200 [facility] Last Admin: 09/20/18 21:48 Dose: 20 mg Guaifenesin (Mucinex La) 600 mg PO BID [facility] Last Admin: 09/20/18 19:08 Dose: 600 mg Hydrochlorothiazide (Microzide) 12.5 mg PO DAILY [facility] Last Admin: 09/20/18 09:36 Dose: 12.5 mg Lisinopril (Zestril) 20 mg PO DAILY [facility] Last Admin: 09/20/18 09:38 Dose: 20 mg Potassium Chloride (K-Dur 20 Meq Er Tab) 10 meq PO 0800 [facility] Last Admin: 09/20/18 10:20 Dose: 10 meq - Labs Labs: 09/20/18 08:19 09/21/18 07:00 PT 11.5 SECONDS (9.4-12.5) 09/20/18 08:19 INR 1.02 09/20/18 08:19 APTT 32.0 Seconds (26.9-38.3) 09/20/18 08:19
[2018-09-21 07:49] LABS: BASO # 0.02 K/mm3 (0.0-2.0); BASO % 0.3 % (0.0-3.0); EOS # 0.3 (0.0-0.7); EOS % 4.7 % (1.5-5.0); HEMOGLOBIN 13.4 g/dL (14.0-18.0); LYMPH % 28.1 % (22.0-35.0); MEAN CORPUSCULAR HGB CONC 33.3 g/dl (31.0-37.0); MEAN PLATELET VOLUME 9.5 fl (7.0-11.0); MONO # 0.8 (0.1-0.6); MONO % 12.1 % (1.0-6.0); RBC 4.62 10^6/uL (3.5-6.1); RED CELL DISTRIBUTION WIDTH 15.1 % (11.5-14.5)
[2018-09-21] MEDS: Potassium Chloride 20 mEq ER Tab PO SCH (09:06)
[2018-09-21] MEDS: guaiFENesin 600 mg ER Tab PO SCH (09:07)
[2018-09-21 09:09] VITALS: BP 145/72
[2018-09-21] MEDS ORDERED: Potassium Chloride 20 mEq ER Tab PO ONE (09:17)
[2018-09-21 11:39] VITALS: PULSE 78
--- NOTE | 2018-09-21 11:41 | CARD ---
APPROVED REPORT Date of service: 09/20/2018 EXAM: Two-dimensional and M-mode echocardiogram with Doppler and color Doppler. INDICATION Chest Pain 2D DIMENSIONS Left Atrium (2D)3.7 (1.6-4.0cm)IVSd1.4 (0.7-1.1cm) Aortic Root (2D)4.3 (2.0-3.7cm)LVDd4.2 (3.9-5.9cm) PWd1.2 (0.7-1.1cm)LVDs2.1 (2.5-4.0cm) FS (%) 49.6 %LVEF (%)81.4 (>50%) M-Mode DIMENSIONS Aortic Cusp Exc.2.30 (1.5-2.0cm) Mitral Valve MV E Iumkzhtc13.2cm/sMV A Optfhlaa00.2cm/sE/A ratio0.9 TDI Lateral E' Peak V10.80cm/sMedial E' Peak V9.07cm/sE/Lateral E'5.9 E/Medial E'7.1 Pulmonary Valve PV Peak Ygycuest69.8cm/sPV Peak Grad.3mmHg Tricuspid Valve TR Peak [id number]/sRAP [id number] Peak Gr.14mmHg [id number] LEFT VENTRICLE The left ventricle is normal size. There is mild concentric left ventricular hypertrophy. Proximal septal thickening is noted. The left ventricular function is normal. EF-70-75% There is normal LV segmental wall motion. Transmitral Doppler flow pattern is Grade III-reversible restrictive diastolic dysfunction. No left ventricle thrombus noted on this study. There is no ventricular septal defect visualized. There is no left ventricular aneurysm. RIGHT VENTRICLE The right ventricle is normal size. There is normal right ventricular wall thickness. The right ventricular systolic function is normal. ATRIA The left atrium size is normal. The right atrium size is normal. The interatrial septum is intact with no evidence for an atrial septal defect. AORTIC VALVE The aortic valve is thickened but opens well. There is trivial aortic regurgitation. There is no aortic valvular stenosis. There is no aortic valvular vegetation. MITRAL VALVE The mitral valve is thickened but opens well. Mitral regurgitation is mild. There is no mitral valve stenosis. There is no evidence of mitral valve prolapse. TRICUSPID VALVE The tricuspid valve is normal in structure. There is trace tricuspid regurgitation.RVSP-17 mmof Hg. There is no tricuspid valve stenosis. There is no tricuspid valve prolapse or vegetation. PULMONIC VALVE The pulmonary valve is normal in structure. There is no pulmonic valvular regurgitation. There is no pulmonic valvular stenosis. GREAT VESSELS The aortic root is borderline enlarged. The ascending aorta is normal in size. The pulmonary artery is normal. The IVC is normal in size and collapses >50% with inspiration. PERICARDIAL EFFUSION There is no pleural effusion. There is no pericardial effusion. <Conclusion> The left ventricle is normal size. There is mild concentric left ventricular hypertrophy. Proximal septal thickening is noted. The left ventricular function is normal. EF-70-75% There is trivial aortic regurgitation. Mitral regurgitation is mild. There is trace tricuspid regurgitation.RVSP-17 mmof Hg. The IVC is normal in size and collapses >50% with inspiration. There is no pericardial effusion.
--- NOTE | 2018-09-21 12:53 | CP.PCM.DIS ---
<Flor Torres L - Last Filed: 09/21/18 12:53> Provider - Provider Date of Admission: 09/19/18 00:21 Attending physician: Quin Suárez DO Primary care physician: Osvaldo Dailey MD Consults: 09/19/18 02:01 Cardiology Consult Routine Comment: Consulting Provider: Fabrizio Peraza Consulting Physician: Fabrizio Peraza Reason for Consult: chest pressure Time Spent in preparation of Discharge (in minutes): 35 Diagnosis - Discharge Diagnosis (1) Viral upper respiratory infection Status: Resolved (2) Chest pain Status: Resolved Hospital Course - Lab Results Lab Results: Micro Results 09/18/18 20:00 Blood Blood Culture - Preliminary NO GROWTH AFTER 48 HOURS 09/18/18 19:45 Blood Blood Culture - Preliminary NO GROWTH AFTER 48 HOURS 09/18/18 21:43 Urine Random Urine Culture - Final No Growth (<1,000 CFU/ML) Most Recent Lab Values WBC 7.0 10^3/uL (4.5-11.0) D 09/21/18 07:00 RBC 4.62 10^6/uL (3.5-6.1) 09/21/18 07:00 Hgb 13.4 g/dL (14.0-18.0) L 09/21/18 07:00 Hct 40.2 % (42.0-52.0) L 09/21/18 07:00 MCV 87.0 fl (80.0-105.0) 09/21/18 07:00 MCH 29.0 pg (25.0-35.0) 09/21/18 07:00 MCHC 33.3 g/dl (31.0-37.0) 09/21/18 07:00 RDW 15.1 % (11.5-14.5) H 09/21/18 07:00 Plt Count 239 10^3/uL (120.0-450.0) 09/21/18 07:00 MPV 9.5 fl (7.0-11.0) 09/21/18 07:00 Neut % (Auto) 54.8 % (50.0-68.0) 09/21/18 07:00 Lymph % (Auto) 28.1 % (22.0-35.0) 09/21/18 07:00 [place] % (Auto) 12.1 % (1.0-6.0) H 09/21/18 07:00 Eos % (Auto) 4.7 % (1.5-5.0) 09/21/18 07:00 Baso % (Auto) 0.3 % (0.0-3.0) 09/21/18 07:00 Lymph # (Auto) 2.0 (1.2-3.4) 09/21/18 07:00 [place] # (Auto) 0.8 (0.1-0.6) H 09/21/18 07:00 Eos # (Auto) 0.3 (0.0-0.7) 09/21/18 07:00 Baso # (Auto) 0.02 K/mm3 (0.0-2.0) 09/21/18 07:00 Absolute Neuts (auto) 3.81 (1.4-6.5) 09/21/18 07:00 PT 11.5 SECONDS (9.4-12.5) 09/20/18 08:19 INR 1.02 09/20/18 08:19 APTT 32.0 Seconds (26.9-38.3) 09/20/18 08:19 Sodium 141 mmol/L (132-148) 09/21/18 07:00 Potassium 3.5 mmol/L (3.6-5.0) L 09/21/18 07:00 Chloride 105 mmol/L (98-107) 09/21/18 07:00 Carbon Dioxide 28 mmol/L (21-33) 09/21/18 07:00 Anion Gap 11 (10-20) 09/21/18 07:00 BUN 20 mg/dL (7-21) 09/21/18 07:00 Creatinine 0.9 mg/dl (0.8-1.5) 09/21/18 07:00 Est GFR ( Amer) > 60 09/21/18 07:00 Est GFR (Non-Af Amer) > 60 09/21/18 07:00 Random Glucose 106 mg/dL (70-110) 09/21/18 07:00 Calcium 9.4 mg/dL (8.4-10.5) 09/21/18 07:00 Phosphorus 4.5 mg/dL (2.5-4.5) 09/21/18 07:00 Magnesium 2.2 mg/dL (1.7-2.2) 09/21/18 07:00 Total Bilirubin 0.2 mg/dL (0.2-1.3) 09/21/18 07:00 AST 22 U/L (17-59) 09/21/18 07:00 ALT 21 U/L (7-56) 09/21/18 07:00 Alkaline Phosphatase 80 U/L (38-126) 09/21/18 07:00 Lactate Dehydrogenase 451 U/L (333-699) 09/18/18 20:00 Total Creatine Kinase 145 U/L (35-230) 09/18/18 20:00 Troponin I < 0.01 ng/mL 09/19/18 08:00 Total Protein 7.6 g/dL (5.8-8.3) 09/21/18 07:00 Albumin 4.3 g/dL (3.0-4.8) 09/21/18 07:00 Globulin 3.2 gm/dL 09/21/18 07:00 Albumin/Globulin Ratio 1.3 (1.1-1.8) 09/21/18 07:00 Urine Opiates Screen Negative (NEGATIVE) 09/19/18 15:01 Urine Methadone Screen Negative (NEGATIVE) 09/19/18 15:01 Ur Barbiturates Screen Negative (NEGATIVE) 09/19/18 15:01 Ur Phencyclidine Scrn Negative (NEGATIVE) 09/19/18 15:01 Ur Amphetamines Screen Negative (NEGATIVE) 09/19/18 15:01 U Benzodiazepines Scrn Negative (NEGATIVE) 09/19/18 15:01 U Oth Cocaine Metabols Negative (NEGATIVE) 09/19/18 15:01 U Cannabinoids Screen Positive (NEGATIVE) H 09/19/18 15:01 Influenza Typ A,B (EIA) Negative for flu a/b (NEGATIVE) 09/19/18 10:16 - Hospital Course Hospital Course: On admission: 58 year old male with PMH of hypertension who presents to [facility] complaining of chest discomfort x1 day. Patient localizes the pain to his left sternum and non-radiating. Patient describes the pain as pressure sensation and constant, lasting for hours. Patient took tylenol to try and relieve the pain, but this did not help. Patient rates the pain as 7/10 in severity. Of note, Patient reports that he has been sick with congestion for about 2 months, and states that it has been worsening for the past day. Patient admits to associated headache, chills, and congestion. ROS is remarkable for occasional productive cough with yellow sputum, and shortness of breath. Patient otherwise denies abdominal pain, nausea, vomiting, diaphoresis, dizziness, fatigue, numbness/tingling in lower extremity, muscle aches, and/or diarrhea. During hospital stay: Patient was given Duonebs and Mucinex. Troponins were nega tive x3. EKG showed NSR. Cardiology was consulted. ECHO was done, with results pending. CXR showed no acute disease. Blood cultures were negative x2. Patient was given cessation counseling for alcohol abuse. Patient was optimized for discharge and instructed to follow up with his primary medical doctor and resume home medications as prescribed. Discharge Exam - Additional Findings Additional findings: - Constitutional Appears: Non-toxic, No Acute Distress - Head Exam Head Exam: ATRAUMATIC, NORMOCEPHALIC - Eye Exam Eye Exam: EOMI, Normal appearance - ENT Exam ENT Exam: Mucous Membranes Moist, Normal Exam - Respiratory Exam Respiratory Exam: Wheezes (mild), NORMAL BREATHING PATTERN. absent: Chest Wall Tenderness, Decreased Breath Sounds, Clear to Auscultation Bilateral, Prolonged Expiratory Phase, Rales, Rhonchi, Respiratory Distress - Cardiovascular Exam Cardiovascular Exam: REGULAR RHYTHM, +S1, +S2 - GI/Abdominal Exam GI & Abdominal Exam: Normal Bowel Sounds, Soft. absent: Tenderness - Extremities Exam Extremities exam: Positive for: full ROM, normal capillary refill, normal inspection, pedal pulses present - Neurological Exam Neurological exam: Alert, CN II-XII Intact, Oriented x3 - Psychiatric Exam Psychiatric exam: Normal Affect, Normal Mood - Skin Skin Exam: Dry, Intact, Normal Color Discharge Plan - Discharge Medications Prescriptions: Hydrochlorothiazide [Microzide] 12.5 mg PO DAILY #7 capsule - Follow Up Plan Condition: STABLE Disposition: HOME/ ROUTINE Instructions: Smoking: Not Just Harmful to Your Lungs and Heart, Chest Pain (DC), Quitting Smoking Additional Instructions: Please follow up with your primary medical doctor as scheduled on 09/23/2018 for post hospitalization follow up. Please discuss with him any new medications that you may have been started on and any medical issues addressed during your admission. We also recommend that you discuss having pulmonary function tests done as an outpatient with your primary medical doctor as well. You had a 2D Echocardiogram done during your admission. This is pending official converting technician interpretation and we will contact you with the results should they be abnormal as discussed. Please stop smoking tobacco as discussed. This is detrimental to your health. Please resume all previous medications that you were taking at home as prescribed by your physician. Should your symptoms return, please seek emergency medical attention immediately at your nearest emergency room. Referrals: Osvaldo Dailey MD [Primary Care Provider] - <Quin Suárez - Last Filed: 09/23/18 11:49> Provider - Provider Date of Admission: 09/19/18 00:21 Attending physician: Quin Suárez DO Primary care physician: Osvaldo Dailey MD Consults: 09/19/18 02:01 Cardiology Consult Routine Comment: Consulting Provider: Fabrizio Peraza Consulting Physician: Fabrizio Peraza Reason for Consult: chest pressure Hospital Course - Lab Results Lab Results: Micro Results 09/18/18 20:00 Blood Blood Culture - Preliminary NO GROWTH AFTER 4 DAYS 09/18/18 19:45 Blood Blood Culture - Preliminary NO GROWTH AFTER 4 DAYS 09/18/18 21:43 Urine Random Urine Culture - Final No Growth (<1,000 CFU/ML) Most Recent Lab Values WBC 7.0 10^3/uL (4.5-11.0) D 09/21/18 07:00 RBC 4.62 10^6/uL (3.5-6.1) 09/21/18 07:00 Hgb 13.4 g/dL (14.0-18.0) L 09/21/18 07:00 Hct 40.2 % (42.0-52.0) L 09/21/18 07:00 MCV 87.0 fl (80.0-105.0) 09/21/18 07:00 MCH 29.0 pg (25.0-35.0) 09/21/18 07:00 MCHC 33.3 g/dl (31.0-37.0) 09/21/18 07:00 RDW 15.1 % (11.5-14.5) H 09/21/18 07:00 Plt Count 239 10^3/uL (120.0-450.0) 09/21/18 07:00 MPV 9.5 fl (7.0-11.0) 09/21/18 07:00 Neut % (Auto) 54.8 % (50.0-68.0) 09/21/18 07:00 Lymph % (Auto) 28.1 % (22.0-35.0) 09/21/18 07:00 [place] % (Auto) 12.1 % (1.0-6.0) H 09/21/18 07:00 Eos % (Auto) 4.7 % (1.5-5.0) 09/21/18 07:00 Baso % (Auto) 0.3 % (0.0-3.0) 09/21/18 07:00 Lymph # (Auto) 2.0 (1.2-3.4) 09/21/18 07:00 [place] # (Auto) 0.8 (0.1-0.6) H 09/21/18 07:00 Eos # (Auto) 0.3 (0.0-0.7) 09/21/18 07:00 Baso # (Auto) 0.02 K/mm3 (0.0-2.0) 09/21/18 07:00 Absolute Neuts (auto) 3.81 (1.4-6.5) 09/21/18 07:00 PT 11.5 SECONDS (9.4-12.5) 09/20/18 08:19 INR 1.02 09/20/18 08:19 APTT 32.0 Seconds (26.9-38.3) 09/20/18 08:19 Sodium 141 mmol/L (132-148) 09/21/18 07:00 Potassium 3.5 mmol/L (3.6-5.0) L 09/21/18 07:00 Chloride 105 mmol/L (98-107) 09/21/18 07:00 Carbon Dioxide 28 mmol/L (21-33) 09/21/18 07:00 Anion Gap 11 (10-20) 09/21/18 07:00 BUN 20 mg/dL (7-21) 09/21/18 07:00 Creatinine 0.9 mg/dl (0.8-1.5) 09/21/18 07:00 Est GFR ( Amer) > 60 09/21/18 07:00 Est GFR (Non-Af Amer) > 60 09/21/18 07:00 Random Glucose 106 mg/dL (70-110) 09/21/18 07:00 Calcium 9.4 mg/dL (8.4-10.5) 09/21/18 07:00 Phosphorus 4.5 mg/dL (2.5-4.5) 09/21/18 07:00 Magnesium 2.2 mg/dL (1.7-2.2) 09/21/18 07:00 Total Bilirubin 0.2 mg/dL (0.2-1.3) 09/21/18 07:00 AST 22 U/L (17-59) 09/21/18 07:00 ALT 21 U/L (7-56) 09/21/18 07:00 Alkaline Phosphatase 80 U/L (38-126) 09/21/18 07:00 Lactate Dehydrogenase 451 U/L (333-699) 09/18/18 20:00 Total Creatine Kinase 145 U/L (35-230) 09/18/18 20:00 Troponin I < 0.01 ng/mL 09/19/18 08:00 Total Protein 7.6 g/dL (5.8-8.3) 09/21/18 07:00 Albumin 4.3 g/dL (3.0-4.8) 09/21/18 07:00 Globulin 3.2 gm/dL 09/21/18 07:00 Albumin/Globulin Ratio 1.3 (1.1-1.8) 09/21/18 07:00 Urine Opiates Screen Negative (NEGATIVE) 09/19/18 15:01 Urine Methadone Screen Negative (NEGATIVE) 09/19/18 15:01 Ur Barbiturates Screen Negative (NEGATIVE) 09/19/18 15:01 Ur Phencyclidine Scrn Negative (NEGATIVE) 09/19/18 15:01 Ur Amphetamines Screen Negative (NEGATIVE) 09/19/18 15:01 U Benzodiazepines Scrn Negative (NEGATIVE) 09/19/18 15:01 U Oth Cocaine Metabols Negative (NEGATIVE) 09/19/18 15:01 U Cannabinoids Screen Positive (NEGATIVE) H 09/19/18 15:01 Influenza Typ A,B (EIA) Negative for flu a/b (NEGATIVE) 09/19/18 10:16 Attending/Attestation - Attestation I have personally seen and examined this patient.: Yes I have fully participated in the care of the patient.: Yes I have reviewed all pertinent clinical information, including history, physical exam and plan: Yes Notes (Text): Please note this DC summary is for 09/21/18 Patient seen and examined by me with resident at approximately 9:10AM and prior to discharge on 09/21/18. Case including discharge plan discussed with resident. Agree with above with following additions/corrections. Patient is a 58-year-old male with past medical history significant for hypertension and marijuana use that presented to the emergency room with chest pain. Please see H&P for full details. Patient was found to have chest pain, shortness of breath, cough, URI, hypertension, hypokalemia, tobacco abuse, and marijuana abuse. Patient was seen by converting technician. Troponins were within normal limits. Chest xray per radiologist shows no active disease. ACS was ruled out. 2D echo per converting technician showed left ventricle is normal size, mild concentric left ventricular hypertrophy, proximal septal thickening is noted, left ventricular function is normal, EF 70-75%, trivial aortic regurgitation, mitral regurgitation is mild, trace tricuspid regurgitation, IVC is normal in size, no pericardial effusion. Chest pain resolved. Patient was cleared for discharge by cardiology. Patient also had a long smoking history. Patient was advised that he should get pulmonary function testing done as an outpatient to rule out COPD. Patient was treated with nebulizer treatments and Mucinex for shortness of breath and cough. Patient was afebrile, no leukocytosis. Influenza was negative. Patient was continued on Norvasc, HCTZ, and lisinopril for hypertension. Patient was given potassium for hypokalemia. Patient was counseled at length on tobacco cessation. Patient was feeling much better. Chest pain and shortness of breath resolved. Patient was ambulating well. Patient was discharged home. On the day of discharge, patient stated he was feeling much better. Chest pain resolved. Shortness of breath resolved. Patient was able to maintain good oxygen saturation with ambulation. Cough was also improved. Patient was tolerating diet. No nausea or vomiting. No abdominal pain. Patient denied headaches or dizziness. No fevers or chills. No dysuria. No diarrhea or constipation. Physical exam: General: Awake and alert sitting up in bed in no acute distress HEENT: Normocephalic, atraumatic. Extraocular muscles intact, pupils equal and reactive, no scleral icterus. Oropharynx is pink and moist. No pharyngeal erythema or exudate appreciated. Neck is supple. Cardiovascular: Regular rhythm. Normal S1 and S2. No murmurs, rubs, or gallops appreciated Pulmonary: Normal respiratory effort. No rhonchi, rales, or wheezing appreciated. Gastrointestinal: Soft, nondistended. Nontender. Positive bowel sounds all 4 quadrants. No guarding. Musculoskeletal: Moves all extremities. No calf tenderness. No edema appreciated. Central nervous system: AAOx3. Dermatologic: Skin warm and dry. Please see chart for full details. Follow up instructions: Patient to follow up with PMD at scheduled appointment on 09/23/18. Patient to stop smoking. All instructions explained to the patient in detail. Patient both understands and agrees to all instructions. Written instructions also given. Time spent in discharging the patient including chart review, medication reconciliation, discussion with the patient, medical information specialist, consultants, and nursing staff was approximately 45 minutes.
--- NOTE | 2018-09-22 08:38 | CARD ---
APPROVED REPORT Date of service: 09/19/2018 EKG Measurement Heart [id number] <Conclusion> Normal sinus rhythm Normal ECG
== END 2018-09-21 12:41 | disposition home or self-care (01) ==
LOC: ED 18:55 → ERH 09-19 00:21 → 3RSO 09-19 02:24
PROVIDERS: ADMIT Hospitalist; ATTEND Hospitalist
DX: J06.9 Acute upper respiratory infection, unspecified (principal); B34.9 Viral infection, unspecified; R07.89 Other chest pain; I10 Essential (primary) hypertension; E87.6 Hypokalemia; F10.10 Alcohol abuse, uncomplicated; F12.90 Cannabis use, unspecified, uncomplicated; F17.200 Nicotine dependence, unspecified, uncomplicated
CPT/HCPCS: 36415; 71045; 71046; 80053; 80324; 80345; 80346; 80349; 80353; 80358; 80361; 82550; 83615; 83735; 83992; 84100; 84484; 85025; 85027; 85610; 85730; 87040; 87086; 87804; 93005; 93306; 94640; 99285; G0378